=== PATIENT | male | born 1975 | race Caucasian/White ===

== ENCOUNTER 2016-08-31 08:22 | Emergency (ER) | payer SELFPAY ==
[~2016-08-31] VITALS: Ht 177.8 cm; Wt 82.5 kg
[2016-08-31] MEDS ORDERED: MORPHINE SULFATE 4 MG/ML, 1ML ONE ×2 (09:46→10:40)
[2016-08-31] MEDS ORDERED: ONDANSETRON 2MG/ML, 2ML ONE (09:46)
[2016-08-31] MEDS: MORPHINE SULFATE 4 MG/ML, 1ML IVPush PRN ×2 (09:53→10:46)
[2016-08-31] MEDS ORDERED: ONDANSETRON 2MG/ML, 2ML IVPush ONE (10:00)
[2016-08-31] MEDS ORDERED: SODIUM CHLORIDE FLUSH 10ML SYR IVF ONE (10:00)
[2016-08-31 11:45] VITALS: BP 108/75
== END 2016-08-31 11:47 | disposition home or self-care (01) ==
LOC: ED 11:30
DX: S06.310A Contusion and laceration of right cerebrum without loss of consciousness, initial encounter (principal); Y04.2XXA Assault by strike against or bumped into by another person, initial encounter
CPT/HCPCS: 70450; 72125; 96374; 96375; 96376; 99284; J2405

== ENCOUNTER 2016-09-01 18:51 | Emergency (ER) | payer SELFPAY ==
[~2016-09-01] VITALS: Ht 177.8 cm; Wt 82.1 kg
[2016-09-01] MEDS ORDERED: ONDANSETRON 2MG/ML, 2ML ONE (19:17)
[2016-09-01] MEDS ORDERED: MORPHINE SULFATE 4 MG/ML, 1ML ONE ×2 (19:17→20:58)
[2016-09-01] MEDS: MORPHINE SULFATE 4 MG/ML, 1ML IVPush PRN ×2 (19:21→21:30)
[2016-09-01] MEDS ORDERED: SODIUM CHLORIDE 0.9% 1,000ML IVBOLUS ONE (19:30)
[2016-09-01] MEDS ORDERED: SODIUM CHLORIDE FLUSH 10ML SYR IVF ONE (19:30)
[2016-09-01] MEDS ORDERED: ONDANSETRON 2MG/ML, 2ML IVPush ONE (19:30)
[2016-09-01 20:57] LABS: BLOOD UREA NITROGEN 10 mg/dL (7-18)
[2016-09-01 22:42] VITALS: BP 123/86
== END 2016-09-01 22:53 | disposition home or self-care (01) ==
LOC: ED 22:47
DX: S02.119A Unspecified fracture of occiput, initial encounter for closed fracture (principal); S06.5X9A Traumatic subdural hemorrhage with loss of consciousness of unspecified duration, initial encounter; Y04.8XXA Assault by other bodily force, initial encounter; Y93.89 Activity, other specified; Y99.8 Other external cause status; Y92.89 Other specified places as the place of occurrence of the external cause
CPT/HCPCS: 36415; 70450; 80048; 82040; 85025; 96361; 96374; 96375; 96376; 99285; J2405; J7030

== ENCOUNTER 2016-09-02 18:54 | Inpatient (IN) | payer SELFPAY ==
[~2016-09-02] VITALS: Ht 177.8 cm; Wt 82.4 kg
[2016-09-02] MEDS ORDERED: SODIUM CHLORIDE 0.9% 1,000ML IVBOLUS ONE (19:30)
[2016-09-02] MEDS ORDERED: SODIUM CHLORIDE FLUSH 10ML SYR IVF ONE (19:30)
[2016-09-02] MEDS ORDERED: MORPHINE SULFATE 4 MG/ML, 1ML ONE ×2 (19:30→21:16)
[2016-09-02] MEDS: MORPHINE SULFATE 4 MG/ML, 1ML IVPush PRN ×2 (19:32→21:29)
[2016-09-02 19:54] LABS: BLOOD UREA NITROGEN 8 mg/dL (7-18)
[2016-09-02] MEDS ORDERED: DIPHENHYDRAMINE 50 MG/ML, 1ML IVPush ONE (20:00)
[2016-09-02] MEDS ORDERED: METOCLOPRAMIDE 5 MG/ML, 2ML IVPush ONE (20:00)
[2016-09-02] MEDS ORDERED: METOCLOPRAMIDE 5 MG/ML, 2ML ONE (21:16)
[2016-09-02] MEDS ORDERED: DIPHENHYDRAMINE 50 MG/ML, 1ML ONE (21:16)
[2016-09-02] MEDS ORDERED: SODIUM CHLORIDE 0.9% 1,000 ML IV SCH (22:43)
[2016-09-02] MEDS ORDERED: ONDANSETRON 2MG/ML, 2ML IVPush PRN (23:00)
[2016-09-02] MEDS ORDERED: DOCUSATE 100 MG CAPSULE PO PRN (23:00)
[2016-09-02] MEDS ORDERED: PROCHLORPERAZINE 10MG TABLET PO PRN (23:00)
[2016-09-02] MEDS ORDERED: ACETAMINOPHEN 325 MG TABLET PO PRN (23:00)
[2016-09-02] MEDS ORDERED: BISACODYL 10 MG SUPP PR PRN (23:00)
[2016-09-02] MEDS ORDERED: POLYETHYLENE GLYCOL 17 GM PACKET PO PRN (23:00)
[2016-09-02] MEDS ORDERED: TRAZODONE 50MG TABLET PO PRN (23:00)
[2016-09-02] MEDS ORDERED: MECLIZINE 12.5 MG TABLET PO PRN (23:00)
[2016-09-02] MEDS ORDERED: hydrALAzine 20 MG/ML, 1ML IVPush PRN (23:00)
[2016-09-03] MEDS: SODIUM CHLORIDE 0.9% 1,000 ML IV SCH ×3 (01:04→14:20)
[2016-09-03 01:09] VITALS: BP 122/73
[2016-09-03 05:56] LABS: BLOOD UREA NITROGEN 7 mg/dL (7-18)
[2016-09-03 07:47] VITALS: BP 130/76
[2016-09-03 12:46] VITALS: BP 131/80
[2016-09-03] MEDS ORDERED: MECLIZINE CHEWABLE 25 MG TAB PO PRN (14:30)
[2016-09-03 19:28] VITALS: BP 125/79
[2016-09-03] MEDS ORDERED: SODIUM CHLORIDE 0.9% 1,000 ML IV SCH (22:43)
[2016-09-04 01:17] VITALS: BP 124/79
[2016-09-04] MEDS: SODIUM CHLORIDE 0.9% 1,000 ML IV SCH ×2 (02:31→20:00)
[2016-09-04 05:17] LABS: BLOOD UREA NITROGEN 9 mg/dL (7-18)
[2016-09-04 07:46] VITALS: BP 133/81
[2016-09-04] MEDS ORDERED: MAGNESIUM SULFATE PMX 2GM/50ML 50 ML IV ONE (09:00)
[2016-09-04 14:30] VITALS: BP 118/75
[2016-09-04 15:15] VITALS: BP 132/82
[2016-09-04 20:57] VITALS: BP 122/77
[2016-09-05 04:49] VITALS: BP 121/77
[2016-09-05 06:49] LABS: BLOOD UREA NITROGEN 8 mg/dL (7-18)
[2016-09-05 07:40] VITALS: BP 112/69
[2016-09-05] MEDS: SODIUM CHLORIDE 0.9% 1,000 ML IV SCH (09:24)
[2016-09-05] MEDS ORDERED: DIPHENHYDRAMINE 50 MG/ML, 1ML IVPush ONE (12:00)
[2016-09-05] MEDS: KETOROLAC 30 MG/1 ML IVPush PRN ×2 (12:41→20:46)
[2016-09-05 13:30] VITALS: BP 124/66
[2016-09-05] MEDS: OXYcodone/APAP 7.5/325MG TABLET PO PRN ×2 (13:38→20:00)
[2016-09-05 18:29] VITALS: BP 117/72
[2016-09-06 01:29] VITALS: BP 131/87
[2016-09-06] MEDS: SODIUM CHLORIDE 0.9% 1,000 ML IV SCH ×2 (03:30→20:58)
[2016-09-06] MEDS: OXYcodone/APAP 7.5/325MG TABLET PO PRN (05:54)
[2016-09-06] MEDS: KETOROLAC 30 MG/1 ML IVPush PRN ×2 (08:17→16:39)
[2016-09-06 08:24] VITALS: BP 121/76
[2016-09-06] MEDS ORDERED: SUMATRIPTAN 6MG/0.5ML SQ ONE (12:00)
[2016-09-06 13:26] VITALS: BP 125/83
[2016-09-06 20:00] VITALS: BP 113/73
[2016-09-06] MEDS: AMITRIPTYLINE 10 MG TABLET PO SCH (20:57)
[2016-09-07 01:02] VITALS: BP 128/73
[2016-09-07] MEDS: KETOROLAC 30 MG/1 ML IVPush PRN ×2 (01:26→12:20)
[2016-09-07 08:30] VITALS: BP 125/74
[2016-09-07] MEDS: SODIUM CHLORIDE 0.9% 1,000 ML IV SCH ×2 (09:34→20:24)
[2016-09-07 14:47] VITALS: BP 116/74
[2016-09-07 20:14] VITALS: BP 113/66
[2016-09-07] MEDS: AMITRIPTYLINE 10 MG TABLET PO SCH (20:24)
[2016-09-08 01:14] VITALS: BP 120/72
[2016-09-08 06:47] VITALS: BP 131/84
[2016-09-08] MEDS: KETOROLAC 30 MG/1 ML IVPush PRN (06:48)
[2016-09-08] MEDS ORDERED: AMIT10TA PO (11:38)
== END 2016-09-08 11:55 | disposition home or self-care (01) | DRG 83 ==
LOC: ED 21:48 → INTOOBSV 21:49 → EDIP 21:49 → ED 22:01 → 3NE 23:40 → OBSVTOIN 09-03 16:24 → 4WST 09-05 13:15 → DCLOUNGE 09-08 11:35
PROVIDERS: ADMIT Internal Medicine; ATTEND Internal Medicine
DX: S06.5X9A Traumatic subdural hemorrhage with loss of consciousness of unspecified duration, initial encounter (principal); E87.1 Hypo-osmolality and hyponatremia; S02.119A Unspecified fracture of occiput, initial encounter for closed fracture; D72.828 Other elevated white blood cell count; E86.0 Dehydration; F43.9 Reaction to severe stress, unspecified; G44.301 Post-traumatic headache, unspecified, intractable; H53.149 Visual discomfort, unspecified; Y08.89XA Assault by other specified means, initial encounter; Y93.89 Activity, other specified; Y92.89 Other specified places as the place of occurrence of the external cause; Y99.8 Other external cause status
CPT/HCPCS: 36415; 70450; 71010; 80048; 81001; 83036; 85025; 96374; 96375; G0378; J1885; J2930; J1200; J2765; J3030; J3475; J7030